=== PATIENT | male | born 1955 | race Caucasian/White ===

== ENCOUNTER → 2020-01-09 | Outpatient (CLI) | payer OTHER ==
[2020-01-04 15:00] VITALS: BP 112/58
[~2020-01-09] MED LIST: AMLO5TAB4 PO; ASPI325T8 PO; CLOP75TA PO; COLE1TAB2 PO; FLUT9.9S NS; INSU100I13 SQ; INSU100V6 SQ; LISI-130 PO; MULT-245 PO; PANT40TA77 PO; hygroton PO
[2020-01-09 13:32] LABS: BASO # 0.1 x10^3/uL (0.0-0.2); BASO % 1 % (0-3); EOS # 0.2 x10^3/uL (0.0-0.7); EOS % 3 % (0-3); HEMATOCRIT 34.5 % (39.0-53.0); HEMOGLOBIN 11.9 g/dL (13.0-17.5); LYMPH % 12 % (24-48); MEAN CORPUSCULAR HEMOGLOBIN 30 pg (25-35); MEAN CORPUSCULAR HGB CONC 34 g/dL (31-37); MEAN CORPUSCULAR VOLUME 86 fL (79-100); MONO # 0.9 x10^3/uL (0.0-1.1); MONO % 11 % (0-9); NEUT # 6.4 x10^3/uL (1.8-7.7); NEUT % 74 % (31-73); PLATELET COUNT 316 x10^3/uL (140-400); RED BLOOD COUNT 4.01 x10^6/uL (4.30-5.70); RED CELL DISTRIBUTION WIDTH 13.8 % (11.5-14.5); WHITE BLOOD COUNT 8.6 x10^3/uL (4.0-11.0)
[2020-01-09 13:48] LABS: CALCIUM 8.9 mg/dL (8.5-10.1); CREATININE 1.6 mg/dL (0.7-1.3); GFR 43.7; POTASSIUM 4.1 mmol/L (3.5-5.1)
[2020-01-09 13:55] LABS: ALBUMIN 3.5 g/dL (3.4-5.0); TOTAL BILIRUBIN 0.7 mg/dL (0.2-1.0); TOTAL PROTEIN 7.1 g/dL (6.4-8.2); URIC ACID 7.3 mg/dL (3.5-7.2)
[2020-01-11 10:19] LABS: HCV ULTRA QUANT PCR HCV Not Detected IU/mL (.)
== END ==
LOC: ONCLAB 12:40
PROVIDERS: ATTEND Internal Medicine Hematology & Oncology
DX: C82.09 Follicular lymphoma grade I, extranodal and solid organ sites (principal)
CPT/HCPCS: 80053; 83520; 83615; 84165; 84550; 85025; 86703; 86705; 86706; 86803; 87340; 87522

== ENCOUNTER → 2020-01-13 | Outpatient (CLI) | payer OTHER ==
[2020-01-04 15:00] VITALS: BP 112/58
--- NOTE | 2020-01-13 17:55 | RAD ---
EXAM: PET W CT SKULL TO MIDTHIGH EXAM DATE: 01/13/2020 INDICATION: Reason: C82.09 / Spl. Instructions: / History: Lymphoma RADIOPHARMACEUTICAL: 13.69 mCi of F-18 Fluorodeoxyglucose (FDG) I.V. via the left hand. TECHNIQUE: Patient weight: 225 pounds. Following at least four-hour fasting, the patient's blood glucose was 147 mg/dl. Approximately 1 hour after administration of FDG, overlapping emission scanning was performed from the orbital meatal line through the pelvis. A low-dose CT was performed for attenuation correction purposes and anatomic localization. Fused images of PET and CT were reviewed. Any standardized uptake values (SUV) reported are maximum values within a volume region of interest, expressed in gm/ml. COMPARISON: CT-guided right kidney biopsy of 01/05/2020, CT angiogram abdomen of 01/01/2020. FINDINGS: PET: In the head and neck, a left level 1B cervical lymph nodes is asymmetrically larger than its counterpart on the right side shows minimal increased FDG uptake to max SUV of 2.8 (image 28 of series 603) that may be reactive. Otherwise, no abnormal FDG uptake in the head and neck is identified. In the chest, a1.3 cm right axillary lymph node shows FDG uptake to max SUV of 8.1 (image 45 of series 603). An irregular 2.3 x 1.0 cm left upper lobe lung nodule shows max SUV of 3.13 (image 46 of series 603). In addition, right-sided paraspinal soft tissue shows abnormal FDG uptake that extends into the central canal at the T4 level (image 49 of series 603). This shows a max SUV of 7.01. An enlarged right retrocrural lymph node measuring 3.8 x 1.9 cm shows abnormal FDG uptake to max SUV of 10.3 (image 74 of series 603). Some activity at the medial left diaphragm is also present without an associated anatomic abnormality. This could reflect muscle activity. Max SUV at this location is 6.14 (image 70 of series 603). In the abdomen and pelvis, there is slightly asymmetric FDG activity in the right kidney that is difficult to distinguish between tumoral uptake versus excreted radiopharmaceutical vascular collecting system. There is masslike fullness to the mid right ureter measuring 2.3 x 1.9 cm that shows focal abnormal FDG uptake to max SUV of 9.4. This is associated with effacement of the right renal pelvis and absent activity in the ureter more distally. There is a mildly enlarged superficial left lower abdominal lymph node measuring 1.7 x 0.8 cm that shows FDG uptake to max SUV of 3.0 (image 139 of series 603). In addition, a 1.5 x 0.6 cm lymph node superficial to the right vastus lateralis muscle in the right thigh shows FDG uptake to max SUV of 5.0. The osseous structures show abnormal FDG uptake in the predominantly right-sided posterior elements at T4-T5, indistinguishable from the activity in the aforementioned paraspinal soft tissue mass with apparent abnormal intrathecal activity. In addition however, there is mottled sclerosis in the right humerus and associated abnormal FDG uptake to max SUV of 11.6. CT: In addition to the aforementioned abnormalities on PET, the CT images show In the head and neck, cervical degenerative spondylosis with reversal of normal lordosis. In the chest, multivessel coronary calcifications and calcified paraesophageal lymph nodes and calcified granulomas in the posterior medial left lower lobe. In the abdomen, the gallbladder is contracted and contains numerous calcified stones. There are postsurgical changes from previous right partial colectomy. No evidence of bowel obstruction, perforation or acute inflammation. Sigmoid colonic diverticuli are present. There persists soft tissue stranding around the right kidney with effacement of the right renal hilum but no retroperitoneal hematoma postbiopsy is identified the vessels show scattered arterial calcifications and a stent in the left common iliac artery. The urinary bladder shows mild diffuse wall thickening. The prostate is borderline enlarged at 5 cm in diameter. IMPRESSION: Findings are compatible with a neoplastic process involving the lymph nodes of the chest, the upper to mid thoracic spine, and right urinary tract with a possible associated or concurrent, separate process in the left upper lobe. These are compatible with the tissue diagnosis of lymphoma. MRI of the thoracic spine could be helpful in assessing the extent of intrathecal involvement, which could influence the timing and order of treatment. Electronically signed by: Joshua Napier MD (01/13/2020 5:52 PM) [id number]
== END ==
LOC: PETSC 09:29
PROVIDERS: ATTEND Internal Medicine Hematology & Oncology
DX: C82.09 Follicular lymphoma grade I, extranodal and solid organ sites (principal); R59.9 Enlarged lymph nodes, unspecified; M47.812 Spondylosis without myelopathy or radiculopathy, cervical region; I25.10 Atherosclerotic heart disease of native coronary artery without angina pectoris; K80.20 Calculus of gallbladder without cholecystitis without obstruction; Z90.49 Acquired absence of other specified parts of digestive tract
CPT/HCPCS: 78815; A9552

== ENCOUNTER → 2020-01-16 | Outpatient (CLI) | payer OTHER ==
[2020-01-16] VITALS (8 sets, daily range): BP systolic 120–154; BP diastolic 62–77
[~2020-01-16] VITALS: Ht 182.9 cm; Wt 100.2 kg
[~2020-01-16] MED LIST changes: +LIDOCAINE WITH 8.4% SOD BICARB 3 ML DISP.SYRIN. IJ ONE; +LIDOCAINE WITH 8.4% SOD BICARB 3 ML DISP.SYRIN. ONE; +MIDAZOLAM HCL/PF 2 MG/2 ML VIAL. IV ONE; +MIDAZOLAM HCL/PF 2 MG/2 ML VIAL. ONE; +fentaNYL PF VIAL 100 MCG/2 ML VIAL IV ONE; +fentaNYL PF VIAL 100 MCG/2 ML VIAL ONE
[2020-01-16 09:23] LABS: BASO # 0.1 x10^3/uL (0.0-0.2); BASO % 1 % (0-3); EOS # 0.2 x10^3/uL (0.0-0.7); EOS % 2 % (0-3); HEMATOCRIT 35.6 % (39.0-53.0); LYMPH # 0.9 x10^3/uL (1.0-4.8); LYMPH % 12 % (24-48); MEAN CORPUSCULAR HEMOGLOBIN 29 pg (25-35); MEAN CORPUSCULAR HGB CONC 34 g/dL (31-37); MEAN CORPUSCULAR VOLUME 85 fL (79-100); MONO # 0.8 x10^3/uL (0.0-1.1); MONO % 11 % (0-9); NEUT # 5.6 x10^3/uL (1.8-7.7); NEUT % 73 % (31-73); PLATELET COUNT 328 x10^3/uL (140-400); RED BLOOD COUNT 4.18 x10^6/uL (4.30-5.70); RED CELL DISTRIBUTION WIDTH 13.8 % (11.5-14.5); WHITE BLOOD COUNT 7.7 x10^3/uL (4.0-11.0)
--- NOTE | 2020-01-16 10:55 | NUR ---
discharge instructions reviewed with pt and family. PIV dc'd. Pt tolerated PO and ambulated. Pt home with family in private vehicle
--- NOTE | 2020-01-16 16:35 | RAD ---
CT-guided bone marrow biopsy. 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 Informed consent was obtained. The patient was brought to the CT scanner and placed in the prone position. A timeout procedure was performed. Case Work Aide CT imaging of the pelvis demonstrated left ilium amenable to bone marrow biopsy. The overlying soft tissues were prepped and draped using maximum sterile barrier technique. 1% lidocaine without epinephrine was administered for local anesthesia. Under intermittent CT guidance, an OncControl needle was advanced into the bone marrow of the left iliac crest. 2 Aspirates and 1 core biopsy samples were obtained. Samples were delivered to pathology was present at the time of procedure. The needle was removed and manual pressure held to achieve hemostasis. No immediate complications were identified. The procedure was performed under conscious sedation including continuous cardiopulmonary monitoring via dedicated sedation nurse. [id number] sedation time: 15 minutes minutes Impression: Successful CT-guided bone marrow biopsy of the left iliac crest . PQRS Compliance Statement: One or more of the following individualized dose reduction techniques were utilized for this examination: 1. Automated exposure control 2. Adjustment of the mA and/or kV according to patient size 3. Use of iterative reconstruction technique
--- NOTE | 2020-01-24 13:11 | PATHOLOGY ---
[facility] Accession Number: [id number] . 01 Material submitted: . PART A: bone - BONE MARROW BIOPSY PART B: bone - BONE MARROW CLOT PART C: bone - BONE MARROW ASPIRATE SLIDES PART D: bone - PERIPHERAL BLOOD SMEARS PART E: bone - BONE MARROW FLOW . 01 Clinical history: . FOLLICULAR LYMPHOMA . 02 Diagnosis: Peripheral smear: - Mild normocytic normochromic anemia. . Bone marrow, aspirate smears, clot section, and core biopsy: - Mildly hypercellular marrow showing trilineage hematopoiesis, no significant dyspoiesis, and decreased iron stores - negative for involvement by follicular lymphoma. (JPM:tayler; 01/24/2020) S 01/24/2020 1006 Local . 02 Comment: The peripheral smear shows a mild normocytic normochromic anemia. The bone marrow is mildly hypercellular and shows trilineage hematopoiesis, no significant dyspoiesis, and decreased iron stores. There is no morphologic or immunophenotypic evidence of marrow involvement by follicular lymphoma, acute leukemia, increase in blasts, or plasma cell neoplasm. (JPM:tayler; 01/24/2020) . . Special stains performed: Iron stain on C1, B1 and A1. Reticulin stain on A1. Immunoperoxidase stain for CD20 on A1 and B1. . 02 Electronically signed: . Vishal Gomes MD, Pathologist NPI- [id number] . 01 Gross description: . A. The specimen is received in formalin, labeled "Stiven Schwarz BM BX" and consists of a bone core measuring 0.8 cm in length and 0.3 cm in diameter which is entirely submitted in A1 following decalcification. . B. The specimen is received in formalin, labeled "Stiven Schwarz BM ASP clot" and consists of a biopsy bag containing clot measuring 2.8 x 2.8 x 0.3 cm which is in entirely submitted in B1. (SDY; 01/16/2020) SYU/SYU 01/16/2020 1735 Local . 02 Microscopic: . Laboratory Data: The WBC count is 7.7 K/CMM, and the automated WBC differential reveals 73% neutrophils, 12% lymphs, 11% monos, 2% eos, and 1% baso. The RBC count is 4.18 M/CMM, hemoglobin 12.0 G/DL, hematocrit 35.6%, MCV 85 FL, MCH 29 PG, MCHC 34 G/DL, and the RDW is 13.8%. The platelet count is 328 K/CMM. . Peripheral Smear: The peripheral smear is reviewed. The WBC count is normal. The WBC differential reveals a predominance of segmented neutrophils, with smaller populations of lymphocytes and monocytes and an occasional eosinophil noted. Neutrophils do not show dysplastic changes. There is no significant neutrophilic left shift. There are no circulating blasts. There is no leukoerythroblastic reaction. The lymphocyte population consists predominantly of small lymphocytes. There are no obvious circulating lymphoma cells. Red blood cells predominantly appear normochromic and normocytic and show no significant anisopoikilocytosis. Platelets are normal in number and morphology. . Aspirate Smears: Two Geller's-stained and one iron-stained aspirate smears are examined. The smears contain multiple marrow particles. The M/E ratio is approximately 2-3:1. Erythroid maturation appears normoblastic. There are no megaloblastic or overt dysplastic changes. Granulopoiesis qualitatively appears normal. There is no significant left shift or dysplastic changes. There is no increase of blasts. Megakaryocytes appear adequate in number and are of variable ploidy. Plasma cells are not increased. Lymphocytes are not increased. There is no atypical lymphoreticular infiltrate. There are no other cells foreign to the marrow. The iron stain shows decreased iron stores. No ringed sideroblasts are identified. . Bone Marrow Biopsy and Clot Sections: Sections of the bone marrow biopsy reveal a segment of bone marrow showing focal aspiration artifact and hemorrhage. Preserved areas of the biopsy range between 40% and 60% cellular. The clot section contains multiple marrow particles, the majority of which are on the order of 50-60% cellular. There is trilineage hematopoiesis. There is a good admixture of erythroid and granulocytic precursors, which are present in varying stages of maturation. There is no increase of blasts. Megakaryocytes appear adequate in number and are of variable ploidy. There are admixed eosinophils which focally appear mildly increased. There is no increase of plasma cells. There is no atypical lymphoreticular infiltrate. More specifically, there are no abnormal lymphoid aggregates and there are no paratrabecular lymphoid infiltrates within the biopsy. Immunoperoxidase stains for CD20 are obtained on the biopsy and clot section and yield the following results: . CD20 (A1): Small population of small lymphocytes positive having a scattered interstitial distribution and comprising less than 10% of nucleated marrow cells; no paratrabecular CD20 positive lymphoid aggregates present. . CD20 (B1): Small population of small lymphocytes positive having a scattered interstitial distribution and comprising less than 10% of nucleated marrow cells; no abnormal CD20 positive lymphoid aggregates present. . A reticulin stain obtained on the bone marrow biopsy shows no significant increase of reticulin fibers. An iron stain obtained on the bone marrow biopsy shows absent stainable iron. An iron stain obtained on the clot section shows nearly absent iron stores. No ringed sideroblasts are identified. . . Special Studies: Bone marrow submitted for flow cytometric analysis has a viability of 91.3%. Granulocytes comprise 85.2% of total cells and show phenotypic evidence of maturation. Monocytes comprise 3.7% of total cells. CD45 dim, CD34 positive cells comprise 0.3% of total cells. Lymphocytes comprise 7.5% of total cells. T-cells comprise 72% of lymphoid cells and show a CD4/CD8 ratio of 1.2. NK-cells comprise 15% of lymphoid cells. Mature B-cells comprise 8% of lymphoid cells and are polyclonal with a kappa:lambda ratio of 1.9. . Bone marrow submitted for cytogenetic analysis shows a normal male karyotype. (JPM:[facility]tayler 01/24/2020) . 02 Pathologist provided ICD-10: D64.9, D75.9 . 02 CPT . 689037, 741325, 616822, 332781, 841354, [id number], 634248, [id number], [id number], [id number] Specimen Comment: A courtesy copy of this report has been sent to [phone] Specimen Comment: [id number], Specimen Comment: Report sent to ,DR FRANKLIN / DR ODOM Performed at: 01 [facility] [address], [place], [place] [id number] MD Jean Montaño MD Phone: [phone] Performed at: 02 [facility] [address] [place], [place] [id number] MD Vishal Gomes MD Phone: [phone]
== END | disposition home or self-care (01) ==
LOC: INTRAD 08:35
PROVIDERS: ATTEND Internal Medicine Hematology & Oncology
DX: C82.09 Follicular lymphoma grade I, extranodal and solid organ sites (principal); D64.9 Anemia, unspecified; D75.9 Disease of blood and blood-forming organs, unspecified; I10 Essential (primary) hypertension; E78.00 Pure hypercholesterolemia, unspecified; E11.9 Type 2 diabetes mellitus without complications; Z79.4 Long term (current) use of insulin; Z79.82 Long term (current) use of aspirin; Z79.899 Other long term (current) drug therapy; Z98.890 Other specified postprocedural states; Z87.891 Personal history of nicotine dependence
CPT/HCPCS: 36415; 38222; 77012; 85025; 88184; 88185; 88237; 99152; J2250; J3010; J3490

== ENCOUNTER → 2020-01-17 | Outpatient (CLI) | payer OTHER ==
[2020-01-16 10:36] VITALS: BP 139/67
[~2020-01-17] MED LIST changes: +GADOTERATE 5 MMOL/10ML VIAL. IVP ONE; -LIDOCAINE WITH 8.4% SOD BICARB 3 ML DISP.SYRIN. IJ ONE; -LIDOCAINE WITH 8.4% SOD BICARB 3 ML DISP.SYRIN. ONE; -MIDAZOLAM HCL/PF 2 MG/2 ML VIAL. IV ONE; -MIDAZOLAM HCL/PF 2 MG/2 ML VIAL. ONE; -fentaNYL PF VIAL 100 MCG/2 ML VIAL IV ONE; -fentaNYL PF VIAL 100 MCG/2 ML VIAL ONE
--- NOTE | 2020-01-17 14:29 | RAD ---
THORACIC SPINE WO/W CONTRAST 01/17/2020 11:15 AM INDICATION: History of lymphoma. FDG uptake identified in the upper thoracic spine. COMPARISON: PET/CT 09/12/2019. TECHNIQUE: Multiplanar, multisequence MR imaging of the thoracic spine was obtained before and after the administration of intravenous gadolinium based contrast. FINDINGS: Newborn Photographer images demonstrate minimal retrolisthesis of C3 on C4, C4 on C5 and C5 and C6. Moderate disc height loss at C5-C6 and C6-C7. Disc bulges are identified at C3-C4, C4-C5, C5-C6 and C6-C7 with moderate moderate spinal canal stenosis at C3-C4 secondary to central disc extrusion with mild compression of the cord without cord signal alteration. Alignment of thoracic spine is normal. Vertebral body heights are maintained. There is abnormal low T1 signal intensity involving the T4 vertebral body suggestive of a marrow replacing process. Similar findings are identified involving the superior right endplate T5. There is a expansile soft tissue process involving the right T4 pedicle and posterior elements as well as a right T4 transverse process and right paraspinal soft tissues extending inferiorly to involve the posterior right lateral epidural space of T5 and the superior aspect of T6. Soft tissue mass measures 7 cm in craniocaudal dimension and 4.0 x 4.0 cm in transaxial dimensions. There is associated severe spinal canal stenosis with mild cord compression at T4-T5. No definite cord signal alteration is identified. There is a pulmonary parenchymal mass identified in the left upper lobe measuring 2.1 x 1.3 cm. At T8-T9 there is a right central disc protrusion with mild spinal canal stenosis. At T9-T10 is a mild disc bulge without significant neuroforaminal stenosis. Mild spinal canal stenosis. IMPRESSION: 1. Soft tissue mass predominantly centered within the right T4 posterior elements extends craniocaudally to inferior T3 level inferiorly to the superior endplate of T6 with associated encroachment on the right posterolateral spinal canal compressing the cord and displacing the cord to the left. No definite cord signal alteration is identified. Findings are in keeping with provided history of lymphoma. Marrow replacement noted at T4 and posteriorly at T5. 2. Mild thoracic spondylosis. 3. 2.1 x 1.3 cm soft tissue mass identified in the left upper lobe the lung. Electronically signed by: Ghislaine Aponte MD (01/17/2020 2:26 PM) [facility]
== END ==
LOC: MRI 11:11
PROVIDERS: ATTEND Internal Medicine Hematology & Oncology
DX: C82.09 Follicular lymphoma grade I, extranodal and solid organ sites (principal); M43.12 Spondylolisthesis, cervical region; M48.02 Spinal stenosis, cervical region; R91.1 Solitary pulmonary nodule
CPT/HCPCS: 72157; A9575

== ENCOUNTER 2020-01-23 09:59 | Outpatient (CLI) | payer OTHER ==
[~2020-01-23] VITALS: Ht 182.9 cm; Wt 100.7 kg
[~2020-01-23 09:59] MED LIST changes: -GADOTERATE 5 MMOL/10ML VIAL. IVP ONE
[2020-01-23 10:26] VITALS: BP 131/61
[2020-01-23] MEDS ORDERED: ceFAZolin SODIUM IV Push 1 GM VIAL. IVP ONE (10:30)
[2020-01-23] MEDS ORDERED: LIDOCAINE 1%/EPI 1:100,000 20 ML VIAL. ONE (10:52)
[2020-01-23 11:01] LABS: CALCIUM 8.8 mg/dL (8.5-10.1); CREATININE 1.4 mg/dL (0.7-1.3); POTASSIUM 4.2 mmol/L (3.5-5.1)
[2020-01-23] MEDS ORDERED: MIDAZOLAM HCL/PF 2 MG/2 ML VIAL. ONE (11:03)
[2020-01-23] MEDS ORDERED: fentaNYL PF VIAL 100 MCG/2 ML VIAL ONE (11:04)
[2020-01-23 11:07] LABS: ALBUMIN 3.3 g/dL (3.4-5.0); ALBUMIN/GLOBULIN RATIO 0.9 (1.0-1.7); BASO # 0.1 x10^3/uL (0.0-0.2); BASO % 1 % (0-3); EOS # 0.2 x10^3/uL (0.0-0.7); EOS % 3 % (0-3); HEMATOCRIT 35.7 % (39.0-53.0); HEMOGLOBIN 11.9 g/dL (13.0-17.5); LYMPH # 0.9 x10^3/uL (1.0-4.8); LYMPH % 14 % (24-48); MEAN CORPUSCULAR HEMOGLOBIN 28 pg (25-35); MEAN CORPUSCULAR HGB CONC 33 g/dL (31-37); MEAN CORPUSCULAR VOLUME 85 fL (79-100); MONO # 0.6 x10^3/uL (0.0-1.1); MONO % 9 % (0-9); NEUT % 73 % (31-73); PLATELET COUNT 264 x10^3/uL (140-400); RED BLOOD COUNT 4.21 x10^6/uL (4.30-5.70); RED CELL DISTRIBUTION WIDTH 13.6 % (11.5-14.5); TOTAL BILIRUBIN 0.4 mg/dL (0.2-1.0); TOTAL PROTEIN 6.8 g/dL (6.4-8.2); WHITE BLOOD COUNT 6.8 x10^3/uL (4.0-11.0)
[2020-01-23 11:15] LABS: PROTHROMBIN TIME PATIENT 13.2 SEC (11.7-14.0)
[2020-01-23] MEDS ORDERED: LIDOCAINE 1%/EPI 1:100,000 20 ML VIAL. SQ ONE (11:15)
[2020-01-23] MEDS ORDERED: MIDAZOLAM HCL/PF 2 MG/2 ML VIAL. IV ONE (11:15)
[2020-01-23] MEDS ORDERED: fentaNYL PF VIAL 100 MCG/2 ML VIAL IV ONE (11:15)
[2020-01-23 11:39] VITALS: BP 95/55
[2020-01-23 12:00] VITALS: BP 94/56
[2020-01-23 12:15] VITALS: BP 115/60
--- NOTE | 2020-01-23 12:17 | RAD ---
Procedure: Ultrasound and fluoroscopically guided placement of right internal jugular power port.. 01/23/2020 10:11 AM Clinical Indication lymphoma, chemotherapy access Sedation: Conscious sedation was administered for 30 minutes. The patient was monitored by a qualified independent observer throughout the time of sedation. Please refer to the medical record for exact doses of medications utilized to achieve moderate sedation. Fluoroscopy time: 0.4minutes Dose area product: 1 Gycm2 Consent: The procedure was explained in its entirety to the patient or the patients designated retail field representative by a member of the treatment team, including a discussion of the risks, benefits and commonly accepted alternatives to the procedure, as well as the expected consequences of no therapy whatsoever. Discussion of the risks included, but was not limited to, those that are most frequent and those that are rare but possibly severe or life-threatening, as well as the possibility of unforeseen complications. Technique and Findings: All elements of maximal sterile barrier technique including the use of a cap, mask, sterile gown, sterile gloves, large sterile sheet, appropriate hand hygiene, and 2% chlorhexidine for cutaneous antisepsis (or acceptable alternative antiseptic per current guidelines) were followed for this procedure. Following informed consent, and a timeout procedure, the patient was prepped and draped in the usual sterile fashion. Ultrasound interrogation of the right neck revealed patency and compressibility of the right internal jugular vein. A 21-gauge micropuncture was then used to gain access to this vein under ultrasound guidance. A hard copy ultrasound image was recorded. The needle was exchanged over a wire for a sheath. A 1 inch incision was made several centimeters inferior to the venotomy site. A catheter was tunneled from this site dermatotomy site in the neck. Catheter was advanced through peel-away sheath such that its tip was in the proximal right atrium with the patient supine. The catheter was trimmed to length and connected to the port reservoir. The port was found to flush and aspirate normally. The wound was closed in layers using 4-0 Vicryl suture. Sterile dressings were applied. Impression: Successful ultrasound and fluoroscopically guided placement of a right internal jugular PowerPort
[2020-01-23 12:33] VITALS: BP 113/63
[2020-01-23 12:44] VITALS: BP 118/68
--- NOTE | 2020-01-23 12:55 | NUR ---
pt ambulated and tolerated PO. PIV dc'd. Discharge education reviewed with pt. Pt home with family
== END 2020-01-23 13:23 | disposition home or self-care (01) ==
LOC: INTRAD 09:59
PROVIDERS: ATTEND Internal Medicine Hematology & Oncology
DX: Z45.2 Encounter for adjustment and management of vascular access device (principal); C85.80 Other specified types of non-Hodgkin lymphoma, unspecified site; C82.09 Follicular lymphoma grade I, extranodal and solid organ sites; I10 Essential (primary) hypertension; E78.00 Pure hypercholesterolemia, unspecified; E66.9 Obesity, unspecified; E11.9 Type 2 diabetes mellitus without complications; Z87.891 Personal history of nicotine dependence; Z79.82 Long term (current) use of aspirin; Z79.4 Long term (current) use of insulin; Z79.899 Other long term (current) drug therapy; Z98.890 Other specified postprocedural states
CPT/HCPCS: 36415; 36561; 76937; 77001; 80053; 85025; 85610; 99152; 99153; C1751; C1892; J0690; J2250; J3010; J3490